=== PATIENT | female | born 1980 | race Hispanic/Latino ===

== ENCOUNTER 2017-11-30 10:03 | Emergency (ER) | payer SELFPAY ==
[2017-11-30 17:21] VITALS: BP 127/78
--- NOTE | 2017-11-30 17:40 | XRay Report ---
FINAL REPORT EXAM: XR CHEST ROUTINE 2V HISTORY: cough TECHNIQUE: Two view chest PA and lateral PRIORS: None. FINDINGS: Cardiac and mediastinal contours are unremarkable. No focal pulmonary infiltrate is identified. No pleural fluid collection seen. Pulmonary vasculature is unremarkable. IMPRESSION: Negative two-view chest
[2017-11-30] MEDS ORDERED: TESSALON PERLES PO ONE (17:54)
[2017-11-30] MEDS ORDERED: LIDOCAINE VISCOUS 2% PO ONE (17:54)
--- NOTE | 2017-11-30 18:12 | Emergency Department Report ---
- General Chief Complaint: Upper Respiratory Infection Stated Complaint: FLU Time Seen by Provider: 11/30/17 16:50 Source: patient Mode of arrival: Ambulatory Limitations: No Limitations - History of Present Illness Initial Comments: This is a 37-year-old nontoxic, well nourished in appearance, no acute signs of distress presents to the ED with c/o of productive cough, sore throat, rhinnorrhea, and nasal congestion x2 weeks. Patient denies any recent travels, long car rides, or recent hospital stays. Patient denies any calf pain or calf tenderness. Patient described productive cough as yellow/green mucus production. Patient denies any chest pain, shortness of breath, difficulty breathing, headache, stiff neck, numbness, tingling, abdominal pain, blurred vision, nausea or vomiting. Patient denies any hemoptysis. Denies any allergies. MD Complaint: cough, sore throat, rhinorrhea, nasal congestion -: week(s) (2) Severity: mild Severity scale (0 -10): 8 Quality: aching Consistency: constant Improves With: nothing Worsens With: nothing Associated Symptoms: rhinorrhea, nasal congestion, sore throat, cough. denies: fever, chills, myalgias, diaphoresis, headache, stiff neck, chest pain, shortness of breath, abdominal pain, nausea, vomiting, diarrhea, dysuria, rash, confusion, right sweats, weight loss, epistaxis, hoarseness, ear pain Treatments Prior to Arrival: none - Related Data Previous Rx's Medication Instructions Recorded Last Taken Type HYDROcodone/APAP 5-325 [[place] 1 - 2 each PO Q4-6H PRN #15 tablet 01/12/14 Unknown Rx 5/325 mg] traMADol [Ultram] 50 mg PO Q6HR PRN #20 tablet 01/12/14 Unknown Rx Azithromycin [Zithromax Z-KANIKA] 250 mg PO DAILY #6 tablet 11/30/17 Unknown Rx Benzonatate [Tessalon Perle] 100 mg PO Q6H PRN #20 capsule 11/30/17 Unknown Rx Nystas/Diphen/Xyl Visc/Mylanta 30 ml MM Q4H PRN 10 Days ml 11/30/17 Unknown Rx [Magic Mouthwash] Allergies Allergy/AdvReac Type Severity Reaction Status Date / Time No Known Allergies Allergy Verified 11/30/17 11:07 ED Review of Systems ROS: Stated complaint: FLU Other details as noted in HPI Constitutional: denies: chills, fever Eyes: denies: eye pain, eye discharge, vision change ENT: throat pain. denies: ear pain Respiratory: cough. denies: shortness of breath, wheezing Cardiovascular: denies: chest pain, palpitations Endocrine: no symptoms reported Gastrointestinal: denies: abdominal pain, nausea, diarrhea Genitourinary: denies: urgency, dysuria, discharge Musculoskeletal: denies: back pain, joint swelling, arthralgia Skin: denies: rash, lesions Neurological: denies: headache, weakness, paresthesias Psychiatric: denies: anxiety, depression Hematological/Lymphatic: denies: easy bleeding, easy bruising ED Past Medical Hx - Past Medical History Hx Liver Disease: (denies) Hx Psychiatric Treatment: Yes (ADHD , ANXIETY) - Surgical History Additional Surgical History: Colostomy with reversal. Pelvic fractures requiring external fixation - Social History Smoking Status: Never Smoker Substance Use Type: Alcohol - Medications Home Medications: Home Medications Medication Instructions Recorded Confirmed Last Taken Type HYDROcodone/APAP 5-325 [[place] 1 - 2 each PO Q4-6H PRN #15 tablet 01/12/14 Unknown Rx 5/325 mg] traMADol [Ultram] 50 mg PO Q6HR PRN #20 tablet 01/12/14 04/27/16 Unknown Rx Azithromycin [Zithromax Z-KANIKA] 250 mg PO DAILY #6 tablet 11/30/17 Unknown Rx Benzonatate [Tessalon Perle] 100 mg PO Q6H PRN #20 capsule 11/30/17 Unknown Rx Nystas/Diphen/Xyl Visc/Mylanta 30 ml MM Q4H PRN 10 Days ml 11/30/17 Unknown Rx [Magic Mouthwash] ED Physical Exam - General Limitations: No Limitations General appearance: alert, in no apparent distress - Head Head exam: Present: atraumatic, normocephalic, normal inspection - Eye Eye exam: Present: normal appearance, PERRL, EOMI. Absent: scleral icterus, conjunctival injection, nystagmus, periorbital swelling, periorbital tenderness Pupils: Present: normal accommodation - ENT ENT exam: Present: mucous membranes moist, TM's normal bilaterally, normal external ear exam - Expanded ENT Exam Expanded Ear exam: Present: normal external inspection Mouth exam: Present: normal external inspection, tongue normal. Absent: drooling, trismus, muffled voice, tongue elevation, laceration Teeth exam: Present: normal inspection Throat exam: Positive: tonsillar erythema, tonsillomegaly (2+), other (Uvula midline. No abscess or swelling noted. ). Negative: tonsillar exudate, R peritonsillar mass, L peritonsillar mass - Neck Neck exam: Present: normal inspection, full ROM. Absent: tenderness, meningismus, lymphadenopathy, thyromegaly - Respiratory Respiratory exam: Present: normal lung sounds bilaterally. Absent: respiratory distress, wheezes, rales, rhonchi, stridor, chest wall tenderness, accessory muscle use, decreased breath sounds, prolonged expiratory - Cardiovascular Cardiovascular Exam: Present: regular rate, normal rhythm, normal heart sounds. Absent: irregular rhythm, systolic murmur, diastolic murmur, rubs, gallop - GI/Abdominal GI/Abdominal exam: Present: soft, normal bowel sounds. Absent: distended, tenderness, guarding, rebound, rigid, diminished bowel sounds - Rectal Rectal exam: Present: deferred - Extremities Exam Extremities exam: Present: normal inspection, full ROM, normal capillary refill. Absent: tenderness, pedal edema, joint swelling, calf tenderness - Back Exam Back exam: Present: normal inspection, full ROM. Absent: tenderness, CVA tenderness (R), CVA tenderness (L), muscle spasm, paraspinal tenderness, vertebral tenderness, rash noted - Neurological Exam Neurological exam: Present: alert, oriented X3, CN II-XII intact, normal gait, reflexes normal - Psychiatric Psychiatric exam: Present: normal affect, normal mood - Skin Skin exam: Present: warm, dry, intact, normal color. Absent: rash ED Course Vital Signs 11/30/17 11/30/17 11:08 17:13 Temperature 98.2 F 98.7 F Pulse Rate 90 86 Respiratory 28 H 18 Rate Blood Pressure 132/77 127/78 O2 Sat by Pulse 98 98 Oximetry - Reevaluation(s) Reevaluation #1: 11/30/17 18:14 Patient is speaking in full sentences with no signs of distress noted. ED Medical Decision Making - Medical Decision Making This is a 37-year-old female that presents with upper respiratory infection and tonsillitis. Patient is stable and was examined by me. Chest xray has been obtained and dictated by radiologist with normal exam. Patient notified of x- ray results with no questions noted by the patient. Influenza swab and strep has been obtained and negative. Patient received Tessalon Perle and lidocaine visous in the ED which patient stated that his symptoms is improving of cough and sore throat. I will treat patient empirically with azithromycin due to symptoms being 2 weeks and is worsening. Wells criteria 0 points. Patient was instrcuted to rest and hydration. Vital signs are stable before discharge. Patient was instructed Follow-up with a primary care doctor in 3-5 days or if symptoms worsen and continue return to emergency room as soon as possible. At time time of discharge, the patient does not seem toxic or ill in appearance. No acute signs of distress noted. Patient agrees to discharge treatment plan of care. No further questions noted by the patient. Critical care attestation.: If time is entered above; I have spent that time in minutes in the direct care of this critically ill patient, excluding procedure time. ED Disposition Clinical Impression: Tonsillitis Upper respiratory infection Qualifiers: URI type: unspecified URI Qualified Code(s): J06.9 - Acute upper respiratory infection, unspecified Disposition: DC- TO HOME OR SELFCARE Is pt being admited?: No Does the pt Need Aspirin: No Condition: Stable Instructions: Benzonatate (By mouth), Azithromycin (By mouth), Upper Respiratory Infection (ED), Tonsillitis (ED) Additional Instructions: Follow-up with a primary care doctor in 3-5 days or if symptoms worsen and continue return to emergency room as soon as possible. Increase rest and hydration. Prescriptions: Azithromycin [Zithromax Z-KANIKA] 250 mg PO DAILY #6 tablet Benzonatate [Tessalon Perle] 100 mg PO Q6H PRN #20 capsule PRN Reason: Cough Nystas/Diphen/Xyl Visc/Mylanta [Magic Mouthwash] 30 ml MM Q4H PRN 10 Days ml PRN Reason: Sore Throat Referrals: PRIMARY CARE, [Primary Care Provider] - 3-5 Days SABINO JUAN MD [Staff Physician] - 3-[address] [facility] [Outside] - 3-5 Days [facility] [Outside] - 3-5 Days Forms: Work/School Release Form(ED)
== END 2017-11-30 18:33 | disposition home or self-care (01) ==
LOC: ED 10:03
DX: J03.90 Acute tonsillitis, unspecified (principal); F90.9 Attention-deficit hyperactivity disorder, unspecified type; F41.9 Anxiety disorder, unspecified; Z93.3 Colostomy status
CPT/HCPCS: 71046; 87116; 87400; 87430

== ENCOUNTER 2018-01-07 23:58 | Emergency (ER) | payer SELFPAY | END 2018-01-08 01:35 | disposition left against medical advice (07) | LOC: ED 23:58 | DX: Z00.8 Encounter for other general examination (principal); Z53.21 Procedure and treatment not carried out due to patient leaving prior to being seen by health care provider ==

== ENCOUNTER 2018-03-02 01:45 | Inpatient (IN) | payer MEDICAID, OTHER ==
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
[2018-03-02] MEDS ORDERED: BOOSTRIX IM ONE (04:52)
[2018-03-02] MEDS ORDERED: NORCO 5/325 PO ONE (04:52)
--- NOTE | 2018-03-02 05:19 | XRay Report ---
FINAL REPORT EXAM: XR HIP 2-3V LT HISTORY: left hip pain s/p fall down stairs TECHNIQUE: An AP view the pelvis was obtained along with a lateral view of left hip. FINDINGS: There is no evidence of acute left-sided hip fracture. There are chronic fracture deformities of the right superior and right inferior pubic rami. There is a threaded screw across the left SI joint to bridge the iliac bone and sacrum. The right hip joint is not show acute changes. There is a T-shaped IUD in the expected position of the pelvis. There is disc degeneration in the lower lumbar spine. IMPRESSION: No evidence of acute left hip fracture. Chronic fracture deformities of the right superior and right inferior pubic rami. Arthritic changes lower lumbar spine. Threaded screw noted bridging the left SI joint.
--- NOTE | 2018-03-02 05:56 | Cat Scan Report ---
FINAL REPORT EXAM: CT HEAD/BRAIN WO CON HISTORY: headache s/p fall down stairs TECHNIQUE: Routine axial imaging was obtained of the brain without IV contrast. FINDINGS: There is no evidence of acute stroke or hemorrhage. The ventricular system is normal size. The basal cisterns appear normal. The visualized sinuses are clear. The mastoid air cells are well pneumatized. The calvarium shows no evidence of fracture or scalp injury. IMPRESSION: No acute intracranial process.
--- NOTE | 2018-03-02 06:15 | Cat Scan Report ---
FINAL REPORT EXAM: CT CERVICAL SPINE WO CON HISTORY: neck pain s/p fall down stairs TECHNIQUE: Routine axial imaging was obtained of the cervical spine without IV contrast with sagittal coronal reconstructions. FINDINGS: There is a levoscoliosis of the cervical spine. The disc heights and alignment otherwise appear normal. There is endplate spurring at C5 and C6. The canal size is normal. There is no evidence of fracture. The pre vertebral soft tissues and C1-C2 articulation appear intact. IMPRESSION: Levoscoliosis. No evidence of fracture. Mild anterior endplate spurring in the lower cervical spine
--- NOTE | 2018-03-02 06:26 | Cat Scan Report ---
FINAL REPORT EXAM: CT LUMBAR SPINE WO CON HISTORY: back pain s/p fall TECHNIQUE: Routine axial imaging was obtained of the lumbar spine without IV contrast with sagittal and coronal reconstructions. FINDINGS: The disc heights and alignment are well maintained. The canal size is normal. At the L2 level there are bilateral nondisplaced transverse fractures of the pedicles of L2. These appear acute to subacute in age. No additional fractures are seen. The canal size is normal. There is no evidence of disc herniation. The facet joints are well maintained. The SI joints reveal a threaded screw inserted across the left SI joint from previous ORIF. The soft tissues otherwise are unremarkable. IMPRESSION: Nondisplaced transverse fractures of the pedicles of L2 bilaterally which appear recent. No evidence of anterolisthesis. No evidence of disc degeneration or canal compromise. Threaded screw noted across the left SI joint from previous ORIF.
[2018-03-02] MEDS ORDERED: DILAUDID IV ONE (07:07)
[2018-03-02] MEDS ORDERED: KEFLEX PO ONE (07:32)
[2018-03-02] MEDS ORDERED: ZOFRAN IV PRN (10:37)
[2018-03-02] MEDS ORDERED: TYLENOL PO PRN (10:37)
[2018-03-02] MEDS ORDERED: SODIUM CHLORIDE FLUSH SYRINGE 10 ML IV PRN (10:37)
--- NOTE | 2018-03-02 10:37 | History and Physical Report ---
History of Present Illness Date of examination: 03/02/18 Date of admission: 03/02/18 07:25 Chief complaint: fall History of present illness: 37-year-old female past medical history chronic back pain, sciatica, multiple surgeries presents with complaint of headache lower back pain and left hip pain status post mechanical fall 2 days ago. Patient states that while walking down stairs at home she fell down 6 stairs and on to her right side and rolled down stairs. She states that her face may have briefly hit the ground. She also states her left hip hit the stair case. She is now experiencing lower back pain radiating to left hip. Also, she has some intermittent numbness left upper thigh. She denies bladder or bowel incontinence, chest pain or abdominal pain. Past History Past Medical History: No medical history Past Surgical History: No surgical history Social history: no significant social history Family history: no significant family history Medications and Allergies Allergies Allergy/AdvReac Type Severity Reaction Status Date / Time No Known Allergies Allergy Verified 11/30/17 11:07 Home Medications Medication Instructions Recorded Confirmed Last Taken Type HYDROcodone/APAP 5-325 [[place] 1 - 2 each PO Q4-6H PRN #15 tablet 01/12/14 Unknown Rx 5/325 mg] traMADol [Ultram] 50 mg PO Q6HR PRN #20 tablet 01/12/14 04/27/16 Unknown Rx Azithromycin [Zithromax Z-KANIKA] 250 mg PO DAILY #6 tablet 11/30/17 Unknown Rx Benzonatate [Tessalon Perle] 100 mg PO Q6H PRN #20 capsule 11/30/17 Unknown Rx Nystas/Diphen/Xyl Visc/Mylanta 30 ml MM Q4H PRN 10 Days ml 11/30/17 Unknown Rx [Magic Mouthwash] Active Meds: Active Medications Morphine Sulfate (Morphine) 2 mg IV Q4H PRN PRN Reason: Pain, Moderate (4-6) Review of Systems All systems: negative Exam - Constitutional Vitals: Temp Pulse Resp BP Pulse Ox 98.2 F 63 20 114/69 97 03/02/18 09:02 03/02/18 09:02 03/02/18 09:02 03/02/18 09:02 03/02/18 09:02 General appearance: Present: no acute distress, well-nourished - EENT Eyes: Present: PERRL ENT: hearing intact, clear oral mucosa - Neck Neck: Present: supple, normal ROM - Respiratory Respiratory effort: normal Respiratory: bilateral: CTA - Cardiovascular Heart Sounds: Present: S1 & S2. Absent: rub, click - Extremities Extremities: pulses symmetrical, No edema Peripheral Pulses: within normal limits - Abdominal General gastrointestinal: Present: soft, non-tender, non-distended, normal bowel sounds Female genitourinary: Present: normal - Integumentary Integumentary: Present: clear, warm, dry - Musculoskeletal Musculoskeletal: gait normal, strength equal bilaterally - Psychiatric Psychiatric: appropriate mood/affect, intact judgment & insight - Neurologic Neurologic: CNII-XII intact, moves all extremities Assessment and Plan Assessment and plan: Fracture of pedicle of lumbar vertebra. Ortho consult pending. Cont supportive care and pain control Chronic back pain As above
[2018-03-02] MEDS: LOVENOX SUB-Q SCH (11:00)
[2018-03-02] MEDS: NACL 0.9% 1000 ML 1,000 ML IV SCH ×2 (11:00→22:13)
[2018-03-02] MEDS: MORPHINE IV PRN ×2 (13:10→18:44)
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
[2018-03-02] MEDS: KEFLEX PO SCH (22:06)
[2018-03-02] MEDS: SODIUM CHLORIDE FLUSH SYRINGE 10 ML IV SCH (22:08)
[2018-03-03] MEDS: MORPHINE IV PRN ×3 (00:24→15:43)
[2018-03-03 07:06] LABS: Basophils # (Auto) 0.1 K/mm3 (0.0-0.1); Basophils % (Auto) 0.8 % (0.0-1.8); Eosinophils # (Auto) 0.3 K/mm3 (0.0-0.4); Eosinophils % (Auto) 3.3 % (0.0-4.3); Hematocrit 35.6 % (30.3-42.9); Hemoglobin 12.3 gm/dl (10.1-14.3); Lymphocytes # (Auto) 3.1 K/mm3 (1.2-5.4); Mean Corpuscular HGB Conc 35 % (30-34); Mean Corpuscular Hemoglobin 31 pg (28-32); Mean Corpuscular Volume 89 fl (79-97); Monocytes # (Auto) 0.8 K/mm3 (0.0-0.8); Platelet Count 366 K/mm3 (140-440); Red Blood Count 4.01 M/mm3 (3.65-5.03); Red Cell Distribution Width 13.3 % (13.2-15.2)
[2018-03-03 07:25] LABS: BUN/Creatinine Ratio 28; Blood Urea Nitrogen 11 mg/dL (7-17); Calcium 7.8 mg/dL (8.4-10.2); Hemolysis Index 7
[2018-03-03] MEDS: KEFLEX PO SCH (10:41)
[2018-03-03] MEDS: LOVENOX SUB-Q SCH (10:42)
[2018-03-03] MEDS: SODIUM CHLORIDE FLUSH SYRINGE 10 ML IV SCH (10:48)
[2018-03-03] MEDS: NACL 0.9% 1000 ML 1,000 ML IV SCH (12:16)
[2018-03-03] MEDS ORDERED: TRIPLE ANTIBIOTIC TP ONE (14:42)
--- NOTE | 2018-03-03 15:35 | Discharge Summary ---
Providers - Providers Date of Admission: 03/02/18 07:25 Date of discharge: 03/03/18 Attending physician: NAHOMY WELLS 03/02/18 07:04 Consult to Physician [CONS] Urgent Comment: Consulting Provider: LORI VELÁZQUEZ Physician Instructions: Reason For Exam: vertebral fracture 03/02/18 12:06 Consult to Wound/ET Nurse [CONS] Routine Reason For Exam: wound eval 03/02/18 13:45 Occupational Therapy Evaluate and Treat [CONS] Routine Comment: Reason For Exam: fracture of pedicle of lumbar vertebra 03/02/18 13:46 Physical Therapy Evaluation and Treat [CONS] Routine Comment: Reason For Exam: fracture of pedicle of lumbar vertebra Primary care physician: DRILLER OPERATOR Hospitalization Condition: Stable Hospital course: Patient is a 37-year-old female past medical history chronic back pain, sciatica , multiple surgeries presents with complaint of headache lower back pain and left hip pain status post mechanical fall 2 days ago. -Traumatic Lspine fracture, not new per Ortho, Dr. Velázquez,ok to discharge. Disposition: GA-01 TO HOME OR SELFCARE Time spent for discharge: 32 minutes Core Measure Documentation - Palliative Care Palliative Care/ Comfort Measures: Not Applicable - Core Measures Any of the following diagnoses?: none - VTE Discharge Requirements Deep Vein Thrombosis/Pulmonary Embolism Present on Admission: No Has pt received <5 days of overlap therapy or INR<2.0: No Anticoagulant overlap therapy prescribed at discharge: No Contraindication No Overlap Therapy order at DC: Not Indicated Exam - Constitutional Vitals: Temp Pulse Resp BP Pulse Ox 98.3 F 66 16 108/63 98 03/03/18 07:31 03/03/18 07:31 03/03/18 07:31 03/03/18 07:31 03/03/18 07:31 General appearance: Present: no acute distress - EENT Eyes: Present: PERRL, EOM intact ENT: hearing intact, clear oral mucosa - Neck Neck: Present: supple, normal ROM - Respiratory Respiratory: bilateral: CTA - Cardiovascular Rhythm: regular Heart Sounds: Present: S1 & S2 - Extremities Extremities: no ischemia, pulses intact - Abdominal General gastrointestinal: Present: soft, non-tender, non-distended, normal bowel sounds - Integumentary Integumentary: Present: clear, warm - Musculoskeletal Musculoskeletal: strength equal bilaterally - Neurologic Neurologic: CNII-XII intact, moves all extremities Plan Activity: other (no strenous activity until cleared by pcp) Diet: regular Special Instructions: physical therapy Durable Medical Equipment Needed Upon Discharge: Walker-Standard Follow up with: PRIMARY MD SAADIA [Primary Care Provider] - 3-5 Days LORI VELÁZQUEZ MD [Staff Physician] - 14 Days Prescriptions: Acetaminophen [Acetaminophen TAB] 325 mg PO Q4H PRN #15 tablet PRN Reason: Pain MILD(1-3)/Fever >100.5/PADILLA HYDROcodone/APAP 5-325 [[place] 5-325 mg TAB] 1 each PO Q4H PRN #15 tablet PRN Reason: Pain , Severe (7-10) Neomycin/Bacitracin/Polymyxinb [Neosporin Antibiotic Ointment] 1 dose TP BID #1 oint...g.
[2018-03-03] MEDS ORDERED: TRIPLE ANTIBIOTIC TP SCH (16:00)
[2018-03-03 17:04] VITALS: BP 125/83
== END 2018-03-03 17:30 | disposition home health service (06) | DRG 552 ==
LOC: ED 01:45 → 3A 07:25
PROVIDERS: ADMIT Hospitalist; ATTEND Internal Medicine
DX: S32.009A Unspecified fracture of unspecified lumbar vertebra, initial encounter for closed fracture (principal); G89.29 Other chronic pain; M54.9 Dorsalgia, unspecified; W18.39XA Other fall on same level, initial encounter; Y93.89 Activity, other specified; Y92.89 Other specified places as the place of occurrence of the external cause; Y99.8 Other external cause status
CPT/HCPCS: 36415; 70450; 72125; 72131; 80048; 85025; 90471; 90715; 96374; J1170; J1650; J2270; J2405; J7030

== ENCOUNTER 2018-06-02 17:17 | Emergency (ER) | payer SELFPAY ==
[2018-06-02] MEDS ORDERED: ATIVAN ONE (17:49)
[2018-06-02] MEDS ORDERED: ATIVAN IV ONE (17:54)
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
[2018-06-02 19:11] LABS: Basophils # (Auto) 0.1 K/mm3 (0.0-0.1); Basophils % (Auto) 0.5 % (0.0-1.8); Eosinophils # (Auto) 0.1 K/mm3 (0.0-0.4); Eosinophils % (Auto) 1.1 % (0.0-4.3); Hematocrit 37.9 % (30.3-42.9); Hemoglobin 13.1 gm/dl (10.1-14.3); Lymphocytes # (Auto) 2.8 K/mm3 (1.2-5.4); Lymphocytes % (Auto) 25.3 % (13.4-35.0); Mean Corpuscular HGB Conc 34 % (30-34); Mean Corpuscular Hemoglobin 31 pg (28-32); Mean Corpuscular Volume 89 fl (79-97); Monocytes # (Auto) 0.9 K/mm3 (0.0-0.8); Monocytes % (Auto) 8.4 % (0.0-7.3); Platelet Count 407 K/mm3 (140-440); Red Blood Count 4.27 M/mm3 (3.65-5.03); Red Cell Distribution Width 13.4 % (13.2-15.2)
[2018-06-02 19:21] VITALS: BP 129/90
[2018-06-02 19:37] LABS: BUN/Creatinine Ratio 15; Blood Urea Nitrogen 9 mg/dL (7-17); Calcium 9.1 mg/dL (8.4-10.2); Hemolysis Index 0
== END 2018-06-02 20:09 | disposition home or self-care (01) ==
LOC: ED 17:17
DX: F41.0 Panic disorder [episodic paroxysmal anxiety] (principal); F90.9 Attention-deficit hyperactivity disorder, unspecified type; F41.9 Anxiety disorder, unspecified; F32.9 Major depressive disorder, single episode, unspecified; Z87.891 Personal history of nicotine dependence; Z79.899 Other long term (current) drug therapy
CPT/HCPCS: 36415; 80048; 84484; 84703; 85025; 85379; 93005; 93010; 96374; 99284; G0480; J2060; 80320

== ENCOUNTER 2018-06-29 01:45 | Emergency (ER) | payer MEDICAID, OTHER ==
[2018-06-29 03:40] LABS: Basophils # (Auto) 0.1 K/mm3 (0.0-0.1); Basophils % (Auto) 0.8 % (0.0-1.8); Eosinophils # (Auto) 0.1 K/mm3 (0.0-0.4); Eosinophils % (Auto) 1.1 % (0.0-4.3); Hematocrit 38.9 % (30.3-42.9); Hemoglobin 13.1 gm/dl (10.1-14.3); Lymphocytes # (Auto) 2.7 K/mm3 (1.2-5.4); Lymphocytes % (Auto) 23.9 % (13.4-35.0); Mean Corpuscular HGB Conc 34 % (30-34); Mean Corpuscular Hemoglobin 30 pg (28-32); Mean Corpuscular Volume 90 fl (79-97); Monocytes # (Auto) 0.9 K/mm3 (0.0-0.8); Monocytes % (Auto) 8.1 % (0.0-7.3); Platelet Count 449 K/mm3 (140-440); Red Blood Count 4.35 M/mm3 (3.65-5.03); Red Cell Distribution Width 13.6 % (13.2-15.2)
[2018-06-29 03:53] LABS: BUN/Creatinine Ratio 8; Blood Urea Nitrogen 5 mg/dL (7-17); Calcium 9.5 mg/dL (8.4-10.2); Hemolysis Index 5
[2018-06-29 03:54] LABS: Bacteria,Urine 1+ /HPF (Negative)
[2018-06-29 03:55] LABS: Amphetamine Screen,Urine PRESUMPTIVE NEGATIVE; Benzodiazepines Screen,Urine PRESUMPTIVE NEGATIVE; Cannabinoid Screen,Urine PRESUMPTIVE NEGATIVE; Cocaine Screen,Urine PRESUMPTIVE NEGATIVE; Methadone Screen,Urine PRESUMPTIVE NEGATIVE; Opiate Screen,Urine PRESUMPTIVE NEGATIVE
[2018-06-29 04:02] LABS: Bilirubin,Urine Negative (Negative); Blood,Urine Negative (Negative); Color,Urine Yellow (Yellow); Protein,Urine <15 mg/dL mg/dL (Negative); Urobilinogen,Urine < 2.0 mg/dL (<2.0)
[2018-06-29 06:40] VITALS: BP 110/72
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
--- NOTE | 2018-06-29 07:21 | XRay Report ---
FINAL REPORT PROCEDURE: XR FOOT 3+V RT TECHNIQUE: RIGHT foot radiographs, AP, lateral, and oblique views. CPT 93301 HISTORY: right foot pain fall COMPARISON: No prior studies are available for comparison. FINDINGS: Fracture (s) and/or Dislocation(s): There is a nondisplaced fracture of the base of the 5th proximal phalanx.. Alignment: Normal . Joint space(s): There is hypertrophy of the 1st metatarsophalangeal joint.. Soft tissues: There is generalized soft tissue swelling of the forefoot.. Bone mineralization: Normal . Foreign bodies: None . Calcaneal spurring: None . IMPRESSION: There is a nondisplaced fracture of the base of the 5th proximal phalanx.. There is hypertrophy of the 1st metatarsophalangeal joint.. There is generalized soft tissue swelling of the forefoot..
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
[2018-06-29] MEDS ORDERED: MOTRIN PO ONE (08:00)
[2018-06-29] MEDS ORDERED: MOTRIN ONE (09:02)
== END 2018-06-29 08:55 | disposition home or self-care (01) ==
LOC: ED 01:45
DX: S92.514A Nondisplaced fracture of proximal phalanx of right lesser toe(s), initial encounter for closed fracture (principal); F90.9 Attention-deficit hyperactivity disorder, unspecified type; W01.0XXA Fall on same level from slipping, tripping and stumbling without subsequent striking against object, initial encounter; Y93.01 Activity, walking, marching and hiking; Y99.8 Other external cause status; Y92.89 Other specified places as the place of occurrence of the external cause
CPT/HCPCS: 36415; 70450; 73630; 80048; 80307; 81001; 84703; 85025; 93005; 93010; 99284; G0480; 80320

== ENCOUNTER 2018-11-11 01:13 | Emergency (ER) | payer SELFPAY ==
[2018-11-11 01:43] VITALS: BP 145/91
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
== END 2018-11-11 03:12 | disposition home or self-care (01) ==
LOC: ED 01:13
DX: B82.0 Intestinal helminthiasis, unspecified (principal)
CPT/HCPCS: 99282

== ENCOUNTER 2018-12-31 16:48 | Emergency (ER) | payer OTHER ==
[2018-12-31 17:19] VITALS: BP 118/75
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
[2018-12-31] MEDS ORDERED: IBUPROFEN PO ONE (19:00)
== END 2018-12-31 20:34 | disposition home or self-care (01) ==
LOC: ED 16:48
DX: J02.9 Acute pharyngitis, unspecified (principal); F41.9 Anxiety disorder, unspecified; F32.9 Major depressive disorder, single episode, unspecified; Z93.3 Colostomy status
CPT/HCPCS: 87116; 87430; 99283